=== PATIENT | female | born 1995 | race Caucasian/White ===

== ENCOUNTER 2019-02-09 10:52 | Emergency (ER) | payer SELFPAY ==
[~2019-02-09] VITALS: Ht 165.1 cm; Wt 59.0 kg
[2019-02-09] MEDS ORDERED: PENICILLIN V P500 MG PO (11:07)
[2019-02-09] MEDS ORDERED: CLEOCIN HCL300 MG PO (12:00)
[2019-02-09] MEDS ORDERED: NORCO 5-325 TA1 EACH PO (12:52)
== END 2019-02-09 13:05 | disposition home or self-care (01) ==
LOC: ED 10:52
DX: K04.7 Periapical abscess without sinus (principal)
CPT/HCPCS: 96374; 96375; 99283-25; J1100; J1885